=== PATIENT | male | born 1950 | race Two or more races ===

== ENCOUNTER 2024-09-27 10:19 | Emergency (ER) | payer OTHER ==
[~2024-09-27] VITALS: Ht 165.1 cm; Wt 89.0 kg
--- NOTE | 2024-09-27 10:30 | ECG ---
[facility] Test Date: 2024-09-27 Test Time: 10:27:06 Pat Name: JEB GRIMM Department: ER Room: Gender: [employer]: : 1950 Requested By: KEN ISSA Order Number: [id number] Reading MD: Ventura Thompson Measurements Intervals [place] Rate: 70 P: 13 [place]: 165 QRS: 114 QRSD: 168 T: -14 QT: 455 QTc: 491 Interpretive Statements Sinus rhythm RBBB and LPFB Electronically Signed On 09-28-2024 17:28:46 PDT by Ventura Thompson Please click the below link to view image of tracing.
--- NOTE | 2024-09-27 10:35 | ED.PDOC ---
SOB-HPI HPI Comments 74 y/o M, presents to the ED for CC of shortness of breath. Patient states, he has been experiencing shortness of breath with an associated non-productive cough [id number]. Patient relays, he was seen by his PCP and was given steroids for symptoms however, they provided no relief. Patient reports, he uses oxygen prn during the day and 2L at night. Patient denies chest pain, fever, chills, sweats, or nasal congestion. No other symptoms or modifying factors present at this time. Time Seen by MD: 10:25 Reviewed notes: Nurses Notes, Medications, Allergies Information Source: Patient Mode of Arrival: Ambulatory Severity: Moderate Timing: Weeks Duration: Since onset Context: Spontaneous Onset PE Risk Factors: None History of: None Prehospital treatment: None Modifying Factors: Nothing Associated Signs and Symptoms: Cough If cough with SOB: Non-Productive Past Medical History Surgical History: Cholecystectomy Surgical History (Other): RIGHT-KNEE Family History Family History: Unknown Social History Smoker: Quit Less Than 1 Year Alcohol: Denies ETOH Use Drugs: Denies Drug Use Lives In: Home Constitutional: denies: chills, diaphoresis, fatigue, fever, malaise, sweats, weakness, others EENTM: denies: blurred vision, double vision, ear bleeding, ear discharge, ear drainage, ear pain, ear ringing, eye pain, eye redness, hearing loss, mouth pain, mouth swelling, nasal discharge, nose bleeding, nose congestion, nose pain, photophobia, tearing, throat pain, throat swelling, voice changes, others Respiratory: reports: cough, shortness of breath; denies: hemoptysis, orthopnea, SOB at rest, SOB with excertion, stridor, wheezing, others Cardiovascular: denies: chest pain, dizzy spells, diaphoresis, Dyspnea on exertion, edema, irregular heart beat, left arm pain, lightheadedness, palpitations, PND, syncope, others Gastrointestinal: denies: abdomen distended, abdominal pain, blood streaked bowels, constipated, diarrhea, dysphagia, difficulty swallowing, hematemesis, melena, nausea, poor appetite, poor fluid intake, rectal bleeding, rectal pain, vomiting, others Genitourinary: denies: burning, dysuria, flank pain, frequency, hematuria, incontinence, penile discharge, penile sore, pain, testicle pain, testicle swelling, urgency, others Neurological: denies: dizziness, fainting, headache, left sided numbness, left sided weakness, numbness, paresthesia, pre-existing deficit, right sided numbness, right sided weakness, seizure, speech problems, tingling, tremors, weakness, others Musculoskeletal: denies: back pain, gout, joint pain, joint swelling, muscle pa in, muscle stiffness, neck pain, others Integumetry: denies: bruises, change in color, change in hair/nails, dryness, laceration, lesions, lumps, rash, wounds, others Allergic/Immunocompromised: denies: Difficulty Healing, Frequent Infections, Hives, Itching, others Hematologic/Lymphatic: denies: anemia, blood clots, easy bleeding, easy bruising, swollen glands, others Endocrine: denies: excessive hunger, excessive sweating, excessive thirst, excessive urination, flushing, intolerance to cold, intolerance to heat, unexplained weight gain, unexplained weight loss, others Psychiatric: denies: anxiety, bipolar disorder, depression, hopeless, panic disorder, schizophrenia, sleepless, suicidal, others All Other Systems: Reviewed and Negative Physical Exam General Appearance: Mild Distress, Obese HEENT: Normal ENT Inspection, PERRL/EOMI Neck: Full Range of Motion, Non-Tender, Normal, Normal Inspection Respiratory: Crackles, Decreased Breath Sounds, Expiration, Inspiration, No Respiratory Distress, Rhonchi Cardiovascular: No Edema, No JVD, No Murmur, No Gallop, Normal Peripheral Pulses, Regular Rate/Rhythm Breast Exam: Deferred Gastrointestinal: No Organomegaly, Non Tender, No Pulsatile Mass, Normal Bowel Sounds, Soft Genitalia: Deferred Pelvic: Deferred Rectal: Deferred Extremities: No calf tenderness, Normal capillary refill, Normal inspection, Normal range of motion, Non-tender, No pedal edema, Swelling, Other (Left leg minimally swollen) 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 Was a procedure done?: No Differential Dx Differential Diagnosis: Bronchitis, CHF, COPD, Dysrhythmia, Hypertension, Hyperventilation, Hyponatremia, Pneumonia, Pulmonary Embolism, Sinusitis, Pharyngitis, URI X-Ray, Labs, Meds, VS Vital Signs Date Time Temp Pulse Resp B/P (MAP) Pulse Ox O2 Delivery O2 Flow Rate FiO2 09/27/24 14:01 18 95 Nasal Cannula* 2 28 09/27/24 14:00 98.7 63 18 156/54 (88) 96 98.7 09/27/24 14:00 63 18 96 Nasal Cannula* 2 28 09/27/24 12:05 98.6 59 20 139/49 (79) 96 98.6 09/27/24 10:50 70 09/27/24 10:48 18 97 Nasal Cannula* 2 28 09/27/24 10:33 97.5 73 20 139/53 (81) 96 97.5 09/27/24 10:27 70 Lab Test 09/27/24 11:56 09/27/24 10:46 Range/Units Urine Color Yellow Yellow Urine Clarity Clear Clear Urine pH 6.5 5.0-9.0 Urine Specific [place] 1.020 1.001-1.035 Urine Protein Trace H Negative Urine Ketones Negative Negative Urine Blood Trace H Negative /uL Urine Nitrite Negative Negative Urine Bilirubin Negative Negative Urine Urobilinogen Normal Negative mg/dL Urine Leukocyte Esterase Negative Negative /uL Urine RBC 3 0 - 3 /hpf Urine Microscopic WBC 0-3 /HPF Urine Squamous Epithelial Cells None seen <5 /hpf Urine Bacteria None seen None Seen /hpf Urine Glucose 3+ H Normal mg/dL Influenza Type A Antigen Negative Negative Influenza Type B Antigen Negative Negative SARS-CoV-2 Antigen (Rapid) Negative NEGATIVE White Blood Count 9.1 4.4-10.8 10^3/uL Red Blood Count 4.48 L 4.5-5.90 10^6/uL Hemoglobin 14.7 13.5-17.5 g/dL Hematocrit 43.6 41.0-53.0 % Mean Corpuscular Volume 97.3 80.0-100.0 fL Mean Corpuscular Hemoglobin 32.7 H 28.0-32.0 pg Mean Corpuscular Hemoglobin Concent 33.6 32.0-36.0 g/dL Red Cell Distribution Width 15.8 H 11.8-14.3 % Platelet Count 131 L 140-450 10^3/uL Mean Platelet Volume 8.5 6.9-10.8 fL Neutrophils (%) (Auto) 67.3 37.0-80.0 % Lymphocytes (%) (Auto) 13.9 10.0-50.0 % Monocytes (%) (Auto) 14.3 H 0.0-12.0 % Eosinophils (%) (Auto) 3.1 0.0-7.0 % Basophils (%) (Auto) 1.4 0.0-2.0 % Neutrophils # (Auto) 6.1 1.6-8.6 10 ^3/uL Lymphocytes # (Auto) 1.3 0.4-5.4 10 ^3/uL Monocytes # (Auto) 1.3 0-1.3 10 ^3/uL Eosinophils # (Auto) 0.3 0-0.8 10 ^3/uL Basophils # (Auto) 0.1 0-0.2 10 ^3/uL Nucleated Red Blood Cells 0.1 % D-Dimer, Quantitative 0.56 H 0.0-0.49 mg/L FEU Sodium Level 137 136-145 mmol/L Potassium Level 4.5 3.5-5.1 mmol/L Chloride Level 98 98-107 mmol/L Carbon Dioxide Level 29 20-31 mmol/L Anion Gap 10 5-15 Blood Urea Nitrogen 14 9-23 mg/dL Creatinine 1.17 0.700-1.30 mg/dL Glomerular Filtration Rate Calc 65 >90 mL/min BUN/Creatinine Ratio 12.0 10.0-20.0 Serum Glucose 205 H 74-106 mg/dL Calcium Level 9.3 8.7-10.4 mg/dL Magnesium Level 2.0 1.6-2.6 mg/dL Total Bilirubin 1.0 0.2-1.0 mg/dL Aspartate Amino Transferase (AST) 24 <34 U/L Alanine Aminotransferase (ALT) 36 7-40 U/L Alkaline Phosphatase 149 H 46-116 U/L Troponin I High Sensitivity 9 </=54 ng/L B-Type Natriuretic Peptide 112.57 0-100 pg/mL Total Protein 6.1 5.7-8.2 g/dL Albumin 3.9 3.2-4.8 g/dL Current Medications Medications (Trade) Dose Ordered Sig/Rell Route Start Time Stop Time Status Last Admin Albuterol (Ventolin Medneb) 5 mg ONCE ONCE NEB 09/27/24 10:45 09/27/24 10:46 DC 09/27/24 10:48 Ipratropium Covert (Atrovent Medneb) 0.5 mg ONCE ONCE NEB 09/27/24 10:45 09/27/24 10:46 DC 09/27/24 10:48 Methylprednisolone Sodium Succinate (Solu Medrol) 125 mg ONCE ONCE IV 09/27/24 13:45 09/27/24 13:47 DC 09/27/24 14:03 Albuterol (Ventolin Medneb) 5 mg ONCE ONCE NEB 09/27/24 13:45 09/27/24 13:47 DC 09/27/24 14:01 Ipratropium Covert (Atrovent Medneb) 0.5 mg ONCE ONCE NEB 09/27/24 13:45 09/27/24 13:47 DC 09/27/24 14:01 [place] [id number] Ph: [phone] DIAGNOSTIC IMAGING Diagnostic Imaging Report : [id number] Signed PATIENT: JEB GRIMM ACCT: [id number] UNIT: [id number] : 1950 LOC: ER ROOM / BED: / AGE / SEX: 74 / M ADM STATUS: REG ER SERVICE 1032 ORDERING PHYSICIAN: KEN ISSA MD PROCEDURE(s): CXR2 - CHEST TWO VIEWS ROUTINE REASON: sob ORDER NUMBER(s): [id number], ACCESSION NUMBER(s): [id number] XY CHEST TWO VIEWS ROUTINE, HISTORY: sob COMPARISON: None None TECHNICAL DATA: 2 view of the chest was obtained. FINDINGS: Lines and tubes: None Cardiomediastinal silhouette: normal Pulmonary vasculature: normal Lung expansion: normal Lung airspace: normal Lung interstitium: normal Pleura: normal Pneumothorax: no Bones: Unremarkable Other: no IMPRESSION: No acute intrathoracic abnormality. ATED BY: EVER MCGRATH MD DICTATED DATE/TIME: 09/27/24 1102 SIGNED BY: EVER MCGRATH MD SIGNED DATE/TIME: 09/27/24 1102 CC: X-Ray, Labs, Meds, VS Comment Course in the emergency department eventful patient came in because of shortness of breath he has a history of CABG COPD diabetes and hypothyroidism with a CABG surgery Chest x-ray is normal EKG shows normal sinus rhythm at 70 with right bundle-branch block The CT shows no PE but probably viral pneumonia CBC normal Urine shows 3+ glucose D-dimer 0.56 elevated CMP normal except for blood sugar of 205 Troponin in nine Influenza a negative Influenza B negative COVID-19 negative I talked to the patient he would rather go home he is feeling much better Time of 1ST Reevaluation: 10:55 Reevaluation 1ST: Unchanged Time of 2ND Reevaluation: 16:30 Reevaluation 2ND: Improved Consultation: PCP Patient Education/Counseling: Diagnosis, Treatment, Prognosis, Need For Follow Up Family Education/Counseling: Diagnosis, Treatment, Prognosis, Need For Follow Up, No Family Present Departure 1 Departure Time of Disposition: 16:32 Impression: Primary Impression: Asthmatic bronchitis with acute exacerbation Qualified Codes: J45.41 - Moderate persistent asthma with (acute) exa cerbation Additional Impressions: Uncontrolled diabetes mellitus Qualified Codes: E11.65 - Type 2 diabetes mellitus with hyperglycemia CAD (coronary artery disease) of artery bypass graft Qualified Codes: I25.708 - Atherosclerosis of coronary artery bypass graft(s), unspecified, with other forms of angina pectoris Disposition: 01 HOME / SELF CARE / HOMELESS Condition: Fair Additional Instructions: Push fluids and follow up with your PCP in the other problem come back to the emergency department for further care e-Prescriptions Prednisone (Prednisone) 20 Mg Tab 20 MG PO BID for 5 Days, #10 MG Prov: KEN ISSA MD 09/27/24 Doxycycline Hyclate (Vibramycin) 100 Mg Cap 1 CAP PO BID for 10 Days, #20 CAP Prov: KEN ISSA MD 09/27/24 Discharged With: Self Critical Care Note Critical Care Time?: No Stability Stability form required: No Heart Score Heart Score: Heart Score Response (Comments) Value History N/A 0 EKG Repolarization Disturb 1 Age >65 2 Risk Factors >3 or Hx ASHD 2 Troponin Normal limit 0 Total 5 I personally scribed for KEN ISSA MD ([email or web address]) on 09/27/24 at 10:35. Electronically submitted by Ingris Ortiz ([email or web address]). I personally scribed for KEN ISSA MD ([email or web address]) on 09/27/24 at 11:59. Electronically submitted by Ingris Ortiz ([email or web address]). KEN ISSA MD Sep 27, 2024 10:35
[2024-09-27] MEDS: ALBUTEROL SULF 2.5 MG/0.5ML(0.5%) NEB SOLN NEB ONE ×2 (10:48→14:01)
[2024-09-27] MEDS: IPRATROPIUM BROM 0.5 MG/2.5ML INH SOL NEB ONE ×2 (10:48→14:01)
[2024-09-27 11:00] LABS: Basophils # (auto) 0.1 10 ^3/uL (0-0.2); Basophils % (auto) 1.4 % (0.0-2.0); Eosinophils # (auto) 0.3 10 ^3/uL (0-0.8); Eosinophils % (auto) 3.1 % (0.0-7.0); Hematocrit 43.6 % (41.0-53.0); Hemoglobin 14.7 g/dL (13.5-17.5); Lymphocytes # (auto) 1.3 10 ^3/uL (0.4-5.4); Lymphocytes % (auto) 13.9 % (10.0-50.0); Mean Corpuscular Hemoglobin 32.7 pg (28.0-32.0); Mean Corpuscular Hgb Conc. 33.6 g/dL (32.0-36.0); Mean Corpuscular Volume 97.3 fL (80.0-100.0); Monocytes # (auto) 1.3 10 ^3/uL (0-1.3); Monocytes % (auto) 14.3 % (0.0-12.0); Neutrophils # (auto) 6.1 10 ^3/uL (1.6-8.6); Neutrophils % (auto) 67.3 % (37.0-80.0); Nucleated Red Blood Cells % 0.1 %; Platelet Count (auto) 131 10^3/uL (140-450); Red Blood Cells 4.48 10^6/uL (4.5-5.90); Red Cell Distribution Width 15.8 % (11.8-14.3); White Blood Cell 9.1 10^3/uL (4.4-10.8)
--- NOTE | 2024-09-27 11:04 | DVH ---
XY CHEST TWO VIEWS ROUTINE, HISTORY: sob COMPARISON: None None TECHNICAL DATA: 2 view of the chest was obtained. FINDINGS: Lines and tubes: None Cardiomediastinal silhouette: normal Pulmonary vasculature: normal Lung expansion: normal Lung airspace: normal Lung interstitium: normal Pleura: normal Pneumothorax: no Bones: Unremarkable Other: no IMPRESSION: No acute intrathoracic abnormality.
[2024-09-27 11:21] LABS: Alanine Aminotransferase 36 U/L (7-40); Albumin 3.9 g/dL (3.2-4.8); Anion Gap 10 (5-15); Aspartate Aminotransferase 24 U/L (<34); Blood Urea Nitrogen 14 mg/dL (9-23); Calcium 9.3 mg/dL (8.7-10.4); Carbon Dioxide 29 mmol/L (20-31); Chloride 98 mmol/L (98-107); Potassium 4.5 mmol/L (3.5-5.1); Sodium 137 mmol/L (136-145); Total Protein 6.1 g/dL (5.7-8.2)
[2024-09-27 11:22] LABS: Alkaline Phosphatase 149 U/L (46-116); Glucose 205 mg/dL (74-106)
[2024-09-27 12:11] LABS: Urine Bacteria None Seen /hpf (None Seen)
[2024-09-27 12:20] LABS: Urine Blood TRACE /uL (Negative); Urine Clarity Clear (Clear); Urine Color Yellow (Yellow); Urine Protein, UAD TRACE (Negative); Urine Squamous Epithelial Cell None Seen /hpf (<5); Urine Urobilinogen Normal (Negative); Urine pH 6.5 (5.0-9.0)
[2024-09-27 12:44] LABS: COVID19 ANTIGEN SOFIA FIA NEGATIVE (NEGATIVE); Rapid Influenza A Negative (Negative); Rapid Influenza B Negative (Negative)
[2024-09-27 14:00] VITALS: PULSE 63; RESP 18; TEMP 98.7; O2SAT 96
[2024-09-27] MEDS: methylPREDNISolone SOD SUCC 125 MG/2 ML VL IV ONE (14:03)
[2024-09-27] MEDS ORDERED: IOHEXOL 350 MG/ML 100ML IJ ONE (14:36)
--- NOTE | 2024-09-27 15:46 | DVH ---
CT CT ANGIO CHEST CONTRAST INDICATION: Pulmonary embolism EXAM DATE: 09/27/2024 02:59 PM COMPARISON: None RADIATION DOSE: CTDIvol: 19 mGy, DLP: 589 mGy*cm PROCEDURE: Helical CT angiographic images were obtained of the chest with intravenous contrast. Sagi ttal and coronal reconstructions as well as MIPS are provided. Maximum intensity projections performe d (MIPs) were performed for CTA. ADDITIONAL IMAGES / REFORMATS: None All CT scans at this medical facility are performed using dose modulation techniques as appropriate t o a performed exam including the following: Automated exposure control was utilized; adjustment of th e MA and/or KV according to patient size; and use of iterative reconstruction technique. FINDINGS: Bones: Scattered degenerative changes are noted in the visualized osseous structures. Visualized Abdomen: Normal. Chest Wall: Normal. Soft tissues: Normal. Mediastinum: Normal. Heart: Normal. Vessels: No filling defects in the visualized pulmonary arteries including the segmental and subsegme ntal pulmonary arteries. Lymph Nodes: Normal. Pleura: Normal. Airways: Normal. Lung: Mosaic lung attenuation could be small airways or vessels disease. 1.0 cm right apical pulmonar y nodule. Right middle lobe and bibasilar centrilobular nodularity could be pneumonia. Other: None IMPRESSION: No pulmonary embolism in the visualized pulmonary arteries including the segmental and subsegmental p ulmonary arteries. Mosaic lung attenuation could be small airways or vessels disease. 1.0 cm right apical pulmonary nodu le. Right middle lobe and bibasilar centrilobular nodularity could be pneumonia.
[2024-09-27 16:00] VITALS: BP 118/49; PULSE 60; RESP 18; O2SAT 96
[2024-09-27] MEDS ORDERED: DOXY100C PO (16:34)
[2024-09-27] MEDS ORDERED: PRED20TA2 PO (16:34)
== END 2024-09-27 16:45 | disposition home or self-care (01) ==
LOC: ER 10:19
DX: J45.901 Unspecified asthma with (acute) exacerbation (principal); E11.65 Type 2 diabetes mellitus with hyperglycemia; I25.810 Atherosclerosis of coronary artery bypass graft(s) without angina pectoris; J44.1 Chronic obstructive pulmonary disease with (acute) exacerbation; Z87.891 Personal history of nicotine dependence; Z90.49 Acquired absence of other specified parts of digestive tract; Z98.890 Other specified postprocedural states; Z20.822 Contact with and (suspected) exposure to COVID-19
CPT/HCPCS: 36415; 71046; 71275; 80053; 81001; 83735; 83880; 84484; 85025; 85379; 87426; 87804; 93005; 94640; 96374; 99285; J2919; Q9967

== ENCOUNTER 2025-01-15 16:36 | Emergency (ER) | payer OTHER ==
[~2025-01-15] VITALS: Ht 167.6 cm; Wt 91.0 kg
[~2025-01-15 16:36] MED LIST: DOXY100C PO; PRED20TA2 PO
[2025-01-15 18:06] LABS: Hematocrit 43.9 % (41.0-53.0); Hemoglobin 15.1 g/dL (13.5-17.5); Mean Corpuscular Hemoglobin 33.1 pg (28.0-32.0); Mean Corpuscular Volume 96.2 fL (80.0-100.0); Nucleated Red Blood Cells % 0.1 %
[2025-01-15 18:10] LABS: Chloride 103 mmol/L (98-107); Potassium 4.3 mmol/L (3.5-5.1); Sodium 139 mmol/L (136-145)
[2025-01-15 18:11] LABS: Anion Gap 10 (5-15); Carbon Dioxide 26 mmol/L (20-31)
[2025-01-15 18:12] LABS: Calcium 9.8 mg/dL (8.7-10.4)
[2025-01-15 18:17] LABS: BUN/Creatinine Ratio 8.8 (10.0-20.0); Blood Urea Nitrogen 10 mg/dL (9-23); Glucose 117 mg/dL (74-106)
--- NOTE | 2025-01-15 18:18 | DVH ---
CHEST RADIOGRAPH Indication: cough Technique: Single frontal view of the chest was obtained COMPARISON: CT CT ANGIO CHEST CONTRAST on DOS: 09/27/24, XY CHEST TWO VIEWS ROUTINE on DOS: 09/27/24 FINDINGS: Lines and Tubes: None Lungs: Clear Pleura: No effusion.No pneumothorax. Cardiomediastinal contours: Cardiomegaly. Bones: Unremarkable Additional Median sternotomy. Congestion. IMPRESSION: Cardiomegaly with mild pulmonary vascular congestion.
[2025-01-15] MEDS: SODIUM CHLORIDE 0.9% 500 ML IVB ONE (18:25)
[2025-01-15 18:26] VITALS: RESP 20; O2SAT 95
--- NOTE | 2025-01-15 18:30 | ED.PDOC ---
Altered Mental Status HPI Comments This is a 75 year old male DEBA presenting to the ED with chief complaint of ALOC. EMS reports that the patient was seen by family to have been in bed all day, becoming more altered over time before 911 was called. EMS relays that the patient was noted to be 88% on RA, being placed on 3L and going up to 97%. EMS states patient knows his own name at this time. Patient unable to answer questions at this time. The patient's has arrived at bedside and is given us more history. The patient was seen on a video call on the of this month. Patient has been diagnosed with multiple nodules on his lungs with new airspace is involving the right middle lobe. The patient was treated with Bactrim and the follow up CT shows some resolution. The patient has had a chronic cough. The patient has had no recent fever, night sweats or weight loss. 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, Medications, Allergies Allergies: Coded Allergies: Amoxicillin (Verified Allergy, Unknown, 09/27/24) Atorvastatin (Verified Allergy, Unknown, 09/27/24) Lisinopril (Verified Allergy, Unknown, 09/27/24) Home Meds Active Scripts Prednisone (Prednisone) 20 Mg Tab, 20 MG PO BID for 5 Days, #10 MG Prov:KEN ISSA MD 09/27/24 Doxycycline Hyclate (Vibramycin) 100 Mg Cap, 1 CAP PO BID for 10 Days, #20 CAP Prov:KEN ISSA MD 09/27/24 Information Source: Emergency Med Personnel Mode of Arrival: EMS Severity: Unable to Care for Self Timing: Hours Duration: Since onset Prehospital treatment: Oxygen Quality: Decreased Alertness, Change in Behavior, Confusion Recent: None Past Medical History PAST MEDICAL HISTORY: Cancer (Thyroid), COPD, High Lipids, HTN, Thyroid Past Medical History (Other): Osteoarthritis, CKD, GERD Surgical History: Cholecystectomy, PTCA Surgical History (Other): Knee arthroscopy, carotid endarterectomy, cataract surgery Family History Family History: Unknown Social History Smoker: Quit Less Than 1 Year Alcohol: Denies ETOH Use Drugs: Denies Drug Use Lives In: Home Constitutional: denies: chills, diaphoresis, fatigue, fever, malaise, sweats, weakness, others EENTM: denies: blurred vision, double vision, ear bleeding, ear discharge, ear drainage, ear pain, ear ringing, eye pain, eye redness, hearing loss, mouth pain, mouth swelling, nasal discharge, nose bleeding, nose congestion, nose pain, photophobia, tearing, throat pain, throat swelling, voice changes, others Respiratory: denies: cough, hemoptysis, orthopnea, SOB at rest, shortness of breath, SOB with excertion, stridor, wheezing, others Cardiovascular: denies: chest pain, dizzy spells, diaphoresis, Dyspnea on exertion, edema, irregular heart beat, left arm pain, lightheadedness, palpitations, PND, syncope, others Gastrointestinal: denies: abdomen distended, abdominal pain, blood streaked bowels, constipated, diarrhea, dysphagia, difficulty swallowing, hematemesis, melena, nausea, poor appetite, poor fluid intake, rectal bleeding, rectal pain, vomiting, others Genitourinary: denies: burning, dysuria, flank pain, frequency, hematuria, incontinence, penile discharge, penile sore, pain, testicle pain, testicle swelling, urgency, others Neurological: denies: dizziness, fainting, headache, left sided numbness, left sided weakness, numbness, paresthesia, pre-existing deficit, right sided numbness, right sided weakness, seizure, speech problems, tingling, tremors, weakness, others Musculoskeletal: denies: back pain, gout, joint pain, joint swelling, muscle pain, muscle stiffness, neck pain, others Integumetry: denies: bruises, change in color, change in hair/nails, dryness, laceration, lesions, lumps, rash, wounds, others Allergic/Immunocompromised: denies: Difficulty Healing, Frequent Infections, Hives, Itching, others Hematologic/Lymphatic: denies: anemia, blood clots, easy bleeding, easy bruising, swollen glands, others Endocrine: denies: excessive hunger, excessive sweating, excessive thirst, excessive urination, flushing, intolerance to cold, intolerance to heat, unexplained weight gain, unexplained weight loss, others Psychiatric: denies: anxiety, bipolar disorder, depression, hopeless, panic disorder, schizophrenia, sleepless, suicidal, others Unable to Obtain due to: Altered Mental Status All Other Systems: Reviewed and Negative Physical Exam General Appearance: Moderate Distress HEENT: Normal ENT Inspection, Pharynx Normal, TMs Normal Neck: Full Range of Motion, Non-Tender, Normal, Normal Inspection Respiratory: Chest Non-Tender, No Accessory Muscle Use, Rhonchi Cardiovascular: No Edema, No JVD, No Murmur, No Gallop, Normal Peripheral Pulses, Regular Rate/Rhythm Breast Exam: Deferred Gastrointestinal: No Organomegaly, Non Tender, No Pulsatile Mass, Normal Bowel Sounds, Soft Genitalia: Deferred Pelvic: Deferred Rectal: Deferred Extremities: No calf tenderness, Normal capillary refill, No pedal edema Musculoskeletal : Apperance: Normal Neurologic: 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 Was a procedure done?: No Differential Diagnosis (ALOC) Differential Diagnosis: Dehydration, Hypoglycemia, DKA, Encephalopathy, Hypoxemia, Seizure X-Ray, Labs, Meds, VS Vital Signs Date Time Temp Pulse Resp B/P (MAP) Pulse Ox O2 Delivery O2 Flow Rate FiO2 01/15/25 19:30 99.0 74 22 135/35 (68) 91 99.0 01/15/25 18:26 20 95 Nasal Cannula* 3 32 01/15/25 17:45 75 14 134/55 (81) 92 01/15/25 16:51 100.0 77 20 148/65 96 100.0 Lab Test 01/15/25 17:55 01/15/25 17:52 Range/Units Influenza Type A Antigen Negative Negative Influenza Type B Antigen Negative Negative SARS-CoV-2 Antigen (Rapid) Negative NEGATIVE White Blood Count 9.9 4.4-10.8 10^3/uL Red Blood Count 4.56 4.5-5.90 10^6/uL Hemoglobin 15.1 13.5-17.5 g/dL Hematocrit 43.9 41.0-53.0 % Mean Corpuscular Volume 96.2 80.0-100.0 fL Mean Corpuscular Hemoglobin 33.1 H 28.0-32.0 pg Mean Corpuscular Hemoglobin Concent 34.4 32.0-36.0 g/dL Red Cell Distribution Width 14.7 H 11.8-14.3 % Platelet Count 220 140-450 10^3/uL Mean Platelet Volume 7.5 6.9-10.8 fL Neutrophils (%) (Auto) 78.4 37.0-80.0 % Lymphocytes (%) (Auto) 9.8 L 10.0-50.0 % Monocytes (%) (Auto) 9.6 0.0-12.0 % Eosinophils (%) (Auto) 1.4 0.0-7.0 % Basophils (%) (Auto) 0.8 0.0-2.0 % Neutrophils # (Auto) 7.7 1.6-8.6 10 ^3/uL Lymphocytes # (Auto) 1.0 0.4-5.4 10 ^3/uL Monocytes # (Auto) 0.9 0-1.3 10 ^3/uL Eosinophils # (Auto) 0.1 0-0.8 10 ^3/uL Basophils # (Auto) 0.1 0-0.2 10 ^3/uL Nucleated Red Blood Cells 0.1 % Sodium Level 139 136-145 mmol/L Potassium Level 4.3 3.5-5.1 mmol/L Chloride Level 103 98-107 mmol/L Carbon Dioxide Level 26 20-31 mmol/L Anion Gap 10 5-15 Blood Urea Nitrogen 10 9-23 mg/dL Creatinine 1.13 0.700-1.30 mg/dL Glomerular Filtration Rate Calc 68 >90 mL/min BUN/Creatinine Ratio 8.8 L 10.0-20.0 Serum Glucose 117 H 74-106 mg/dL Lactic Acid Level 1.4 0.4-2.0 mmol/L Calcium Level 9.8 8.7-10.4 mg/dL Troponin I High Sensitivity 8 </=54 ng/L Plasma/Serum Blood Alcohol < 3.0 <10 mg/dL Current Medications Medications (Trade) Dose Ordered Sig/Rell Route Start Time Stop Time Status Last Admin Sodium Chloride 500 ml @ 500 mls/hr Q1H ONCE IVB 01/15/25 17:15 01/15/25 18:14 DC 01/15/25 18:25 Chest XR indicates: Cardiomegaly with mild pulmonary vascular congestion. The patient was given normal saline at 500 cc The patient was given Lasix 40 mg IV push The CBC and chemistry panel are within normal limits The COVID test is negative The influenza is negative The patient is a [place] patient we are signing the patient out to Dr. Moreno Images Reviewed?: Images reviewed and evaluated by me Time of 1ST Reevaluation: 20:11 Reevaluation 1ST: Unchanged Patient Education/Counseling: Diagnosis, Treatment, Prognosis Family Education/Counseling: No Family Present SEPSIS Sepsis Screen Date sepsis recognized/suspect: Jan 15, 2025 Time Sepsis recognized/suspect: 1644 Recent Procedure: No On Antibiotic Therapy: No Respiratory Rate >20: No Heart Rate >90: No Temp<36 C (96.8 F) or >38.3 C: No SBP <90 or MAP <65 mmHG: No New Acute Mental Status Change: Yes Is the patient on CPAP, BIPAP,: No Physician Orders Urinalysis (01/15/25 17:02) Chest Portable (01/15/25 17:02) Delivery Route Driver (01/15/25 17:02) Pulse Oximetry (01/15/25 17:02) Blood Pressure (01/15/25 17:02) Heplock Iv (01/15/25 17:02) Blood Culture (01/15/25 17:02) Electrocardigram (01/15/25 17:02) Vital Signs Date Time Temp Pulse Resp B/P (MAP) Pulse Ox O2 Delivery O2 Flow Rate FiO2 01/15/25 19:30 99.0 74 22 135/35 (68) 91 99.0 01/15/25 18:26 20 95 Nasal Cannula* 3 32 01/15/25 17:45 75 14 134/55 (81) 92 01/15/25 16:51 100.0 77 20 148/65 96 100.0 Laboratory Tests Test 01/15/25 17:52 Lactic Acid Level 1.4 mmol/L (0.4-2.0) White Blood Count 9.9 10^3/uL (4.4-10.8) Medications Medications Dose Ordered Sig/Rell Route Start Time Stop Time Status Last Admin Dose Admin Sodium Chloride 500 ml @ 500 mls/hr Q1H ONCE IVB 01/15/25 17:15 01/15/25 18:14 DC 01/15/25 18:25 Departure 1 Departure Time of Disposition: 20:11 Impression: Primary Impression: Altered mental status Qualified Codes: R41.82 - Altered mental status, unspecified Additional Impression: Autonomic dysfunction Disposition: 09 ADMITTED INPATIENT Admit to: Tele Condition: Fair Critical Care Note Critical Care Time?: Yes (45 min-critical care time only) Stability Stability form required: Yes Unstable for transfer: Telemetry monitoring (Telemetry monitoring required), ED Physician Assesment (Clinical assesment) Heart Score Heart Score: Heart Score Response (Comments) Value History N/A 0 EKG N/A 0 Age N/A 0 Risk Factors N/A 0 Troponin N/A 0 Total 0 I personally scribed for GREER CONLEY MD ([email or web address]) on 01/15/25 at 18:30. Electronically submitted by Alli Becker ([email or web address]). GREER CONLEY MD Jan 15, 2025 18:30
[2025-01-15 19:01] LABS: COVID19 ANTIGEN SOFIA FIA NEGATIVE (NEGATIVE)
--- NOTE | 2025-01-15 21:22 | DVH ---
Procedure: CT HEAD WITHOUT CONTRAST Study Date and Requested Time: 01/15/2025 08:45 PM Study history: Comparison: None Dose: CTDI: 65.38 mGy DLP: 1.71 mGycm Technique: Multiplanar images obtained through the brain without intravenous contrast. Findings: Moderate diffuse brain atrophy. Moderate chronic small-vessel ischemic changes. No hemorrhages, masses, mass effect, midline shift, herniation or cytotoxic edema following a large v ascular territory. No intra-axial or extra-axial fluid collections. No evidence of hydrocephalus. The basal cisterns are patent. The pituitary gland, sella and parasellar regions are unremarkable. The cerebellar tonsils are in nor mal position. The cerebellum is unremarkable. Bilateral lens replacement. Otherwise, orbits and globes are unremarkable. Polypoid mucoperiosteal t hickening of bilateral ethmoid, bilateral maxillary, bilateral inferior frontal and left sphenoid sin us. The mastoids are clear. There are no worrisome calvarial lesions. Impression: No evidence of acute intracranial abnormality.
[2025-01-15 21:28] LABS: Alanine Aminotransferase 30 U/L (7-40); Albumin 3.9 g/dL (3.2-4.8); Alkaline Phosphatase 70 U/L (46-116); Anion Gap 11 (5-15); BUN/Creatinine Ratio 9.9 (10.0-20.0); Bilirubin, Total 0.7 mg/dL (0.2-1.0); Blood Urea Nitrogen 11 mg/dL (9-23); Calcium 9.2 mg/dL (8.7-10.4); Carbon Dioxide 26 mmol/L (20-31); Chloride 104 mmol/L (98-107); Potassium 4.5 mmol/L (3.5-5.1); Sodium 141 mmol/L (136-145); Total Protein 6.6 g/dL (5.7-8.2)
[2025-01-15 21:29] LABS: Glucose 141 mg/dL (74-106)
[2025-01-15 22:40] LABS: Amphetamine Screen, Urine Neg (NEGATIVE); Barbiturate Scree,Urine Neg (NEGATIVE); Benzodiazephine Screen, Urine Neg (NEGATIVE); Cannabinoid Screen, Urine Neg (NEGATIVE); Cocaine Screen, Urine Neg (NEGATIVE); Opiate Scree,Urine Neg (NEGATIVE); Phencyclidine Screen, Urine Neg (NEGATIVE)
[2025-01-15 22:44] LABS: Urine Protein, UAD TRACE (Negative)
[2025-01-16 01:44] VITALS: BP 102/48; PULSE 65; RESP 20; TEMP 97.7; O2SAT 91
== END 2025-01-16 01:14 | disposition short-term general hospital (02) ==
LOC: EDBD 16:36 → EDUNIT# 16:36 → ER 16:43
DX: G90.9 Disorder of the autonomic nervous system, unspecified (principal); R41.82 Altered mental status, unspecified; E78.5 Hyperlipidemia, unspecified; J44.9 Chronic obstructive pulmonary disease, unspecified; M19.90 Unspecified osteoarthritis, unspecified site; I12.9 Hypertensive chronic kidney disease with stage 1 through stage 4 chronic kidney disease, or unspecified chronic kidney disease; N18.9 Chronic kidney disease, unspecified; Z98.49 Cataract extraction status, unspecified eye; Z90.49 Acquired absence of other specified parts of digestive tract; Z88.8 Allergy status to other drugs, medicaments and biological substances; Z88.0 Allergy status to penicillin; Z85.850 Personal history of malignant neoplasm of thyroid; Z79.52 Long term (current) use of systemic steroids; Z79.899 Other long term (current) drug therapy; Z87.891 Personal history of nicotine dependence; Z20.822 Contact with and (suspected) exposure to COVID-19
CPT/HCPCS: 36415; 36600; 70450; 71045; 80048; 80053; 80307; 80320; 81001; 82805; 82947; 83605; 84484; 85025; 87040; 87426; 87804; 99285; J7040